=== PATIENT | male | born 1955 ===

== ENCOUNTER 2019-06-21 05:07 | Emergency (ER) | payer SELFPAY ==
[2019-06-21] MEDS ORDERED: LABETALOL 20 MG/4ML SYRINGE IV ONE (05:24)
[2019-06-21] MEDS ORDERED: RSI MEDICATION KIT IV ONE (05:25)
[2019-06-21 05:28] LABS: Absolute Lymphocytes (CBC) 1.2 K/uL (0.7-4.9); Lymphocytes % 12.8 % (15.3-44.8); MPV 7.1 fL (7.6-11.3); RBC Red Blood Cell Count 4.45 M/uL (4.33-5.43)
[2019-06-21 05:34] LABS: Protime INR 1.1
[2019-06-21] MEDS ORDERED: MIDAZOLAM HCL 2 MG/2 ML INJ ONE ×2 (05:41→06:36)
[2019-06-21 05:42] LABS: Potassium 4.3 mmol/L (3.5-5.1)
[2019-06-21] MEDS ORDERED: Nicardipine/NS 25 MG/250 ML KIT IV ONE (06:06)
--- NOTE | 2019-06-21 06:28 | ER ---
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 Last well known was 2229. Transition of care: patient was not received from another setting of care. An acute neurological deficit is present. Pre-hospital glucose is not applicable to this patient. Onset of symptoms was June 21, 2019. Risk Assessment: Do you want to hurt yourself or someone else? Unable to obtain. Initial Sepsis Screen: Does the patient meet any 2 criteria? No. Patient's initial sepsis screen is negative. Does the patient have a suspected source of infection? No. Patient's initial sepsis screen is negative. Care prior to arrival: None. 05:04 Method Of Arrival: EMS: [facility] ea 05:04 Acuity: PINKY 2 ea Stroke Activation: Symptom onset > 6 hours Physician: Stroke Attending; Name: ; Notified At: 05:00; Arrived At: Physician: Chief Stroke Resident; Name: ; Notified At: 05:00; Arrived At: Physician: Stroke Resident; Name: ; Notified At: 05:00; Arrived At: Physician: ED Attending; Name: Helen; Notified At: 05:00; Arrived At: 05:04 Physician: ED Resident; Name: ; Notified At: 05:00; Arrived At: Historical: - Allergies: 05:48 No Known Allergies; tw4 - Home Meds: 05:48 Unable to obtain [Active]; tw4 - PMHx: 05:48 CVA; tw4 - Immunization history:: unable to determine. - Social history:: Smoking status: unknown. - Ebola Screening: : Unable to complete screening because. Screenin:12 Abuse screen: Denies threats or abuse. Nutritional screening: No deficits noted. ea Tuberculosis screening: No symptoms or risk factors identified. Fall Risk IV access (20 points). Assessment: 05:05 Reassessment: Pt taken to CT. ea 05:08 General: Appears comfortable, Behavior is unable to follow commands. Pain: Unable to ea use pain scale. FLACC scale score is 0 out of 10. Neuro: Level of Consciousness is unable to follow commands. Oriented to none Pupils are gazing toward the left. Respiratory: Airway is patent Respiratory effort is even, unlabored, Respiratory pattern is regular, symmetrical. Derm: Wound noted left patino. 05:50 The patient has not been NPO before screening. The patient is not alert and/or unable ea to follow commands. Bedside swallow screen discontinued. Patient kept NPO until cleared by Speech Therapy or Physician. 05:50 pt unable to follow commands Pt unable to follow commands The patient is exhibiting ea difficulty understanding words. The patient is unable to swallow own secretions without drooling or the need for suction. Bedside swallow screening discontinued. Patient kept NPO until cleared by Speech Therapy or Physician. pt unable to follow commands The patient failed the bedside swallow screening. The patient will be kept NPO until cleared by Speech Therapy or Physician. Provider notified of bedside swallow screening results: Sean Cervantes MD. Neuro: Level of Consciousness is awake, Oriented to none. 05:58 Reassessment: Provider and respiratory at bedside, pt sedated and intubated, pt ea tolerated well. 06:38 Reassessment: Life flight at facility for transport, report given to [employer]. ea 06:43 Reassessment: Report called to [facility]. ea 06:58 Reassessment: Pt resting with eyes closed, sedated and intubated, ETT in place, ea respirations assisted, moise breath sounds noted, NG tube in place to low intermittent suction. Mckeon catheter in place to BSD. IV sites intact patent with IV meds infusing. Life flight at facility for transfer, pt left ED via stretcher per [facility]. Vital Signs: 05:19 BP 181 / 136; Pulse 90; Resp 18; Temp 97.7; Pulse Ox 98% ; Weight 124.74 kg; Height 5 ea ft. 11 in. (180.34 cm); 06:00 BP 211 / 125; Pulse 70; Resp 18; Temp 97.8; Pulse Ox 100% ; ea 06:30 BP 200 / 114; Pulse 76; Resp 18; Pulse Ox 99% on ETT vent; ea 05:19 Body Mass Index 38.35 (124.74 kg, 180.34 cm) ea Tyler Coma Score: 05:48 Eye Response: to voice(3). Verbal Response: none(1). Motor Response: flexion tw4 (decorticate)(3). Total: 7. NIH Stroke Scale Scores: 05:10 NIHSS Score: 32 ea ED Course: 05:08 Patient arrived in ED. ea 05:08 Inserted saline lock: 20 gauge in right hand, using aseptic technique. Blood collected. ea Per Andreina AARON. Inserted saline lock: 18 gauge in left antecubital area, using aseptic technique. Blood collected. Per Zeinab AARON. 05:09 Sean Cervantes MD is Attending Physician. tw4 05:10 Patient has correct armband on for positive identification. Placed in gown. Bed in low ea position. Call light in reach. Side rails up X2. 05:10 Arm band placed on right wrist. Patient placed in an exam room, on a stretcher, on ea manager cardiac cath, on pulse oximetry. 05:25 CT Stroke Brain w/o Contrast In Process Unspecified. EDMS 05:38 Assist ventilation with ventilator. ea 05:38 Assisted provider with intubation using 7.5 mm ETT via oral route. ET tube secured at ea 23cm at the teeth. Set up intubation tray. Intubated by Sean Cervantes MD Placement verified by CXR, Patient tolerated well. Vent settings: PEEP 5, Tital volume: 600, Rate: 14. 05:40 NGT: inserted 12 Fr. verified placement of air over stomach, verified return of gastric ea contents, to intermittent suction. Returned gastric contents. Patient tolerated well. 05:44 Rosalina Aldana, AGNIESZKA is Primary Nurse. ea 05:49 Triage completed. ea 05:51 Mckeon cath inserted, using sterile technique, 16 Fr., by ED staff, balloon inflated, to ea gravity drainage. 06:21 \[id number] initiated a transfer with Jayla Madrigal from the [facility]/ [facility] \[id number] administrative approval given by Jayla Madrigal RN , Dr. Harry has accepted the patient in transfer. Patient has been accepted to [place] [id number] Bed 7512/ report to be called to [phone]. 06:53 Patient transferred, IV remains in place. ea 07:05 Stroke CXR 1 View In Process Unspecified. EDMS Administered Medications: 05:34 Drug: Etomidate 20 mg Route: IVP; Site: right hand; ea 05:36 Follow up: Response: No adverse reaction ea 05:35 Drug: VecuroNIUM 10 mg Route: IVP; Site: right hand; ea 05:42 Follow up: Response: No adverse reaction ea 05:41 Drug: Versed 4 mg Route: IVP; Site: right hand; ea 05:42 Follow up: Response: No adverse reaction ea 05:58 Drug: Labetalol 10 mg Route: IVP; Site: right hand; ea 06:00 Follow up: Response: No adverse reaction ea 06:16 Drug: Cardene 5 mcg/kg/min Route: IV; Rate: calculated rate; Site: left antecubital; tl1 07:04 Follow up: IV Status: Infusion continued upon transfer ea 06:34 Drug: Versed 2 mg Route: IVP; Site: right hand; ea 06:38 Follow up: Response: No adverse reaction ea 06:40 Drug: Propofol 5 mcg/kg/min Route: IV; Rate: calculated rate; Site: left antecubital; ea 07:05 Follow up: IV Status: Infusion continued upon transfer ea 07:07 CANCELLED (Other Intervention Used): Versed 4 mg IVP once ea Point of Care Testing: Blood Glucose: 05:19 Blood Glucose: 155 mg/dL; ea Ranges: Output: 06:51 Urine: 450ml (Mckeon); Total: 450ml. ea Outcome: 06:27 ER care complete, transfer ordered by twAbdulkadir 06:30 Condition: stable ea 06:53 Instructed on Family instructed by physician on need for transfer, family verbalized ea the understanding of instruction 06:54 Transferred by helicopter to [facility], Transfer form completed. ea X-rays sent w/ patient. 07:08 Patient left the ED. ea NIH Stroke Scale - NIH Stroke Score Date: 06/21/2019 Time: 05:10 Total Score = 32 1a. Level of Consciousness (LOC) - 1(Not Alert) 1b. Level of Consciousness (LOC) (Year \T\ Age) - 2(Neither) 1c. LOC Commands (Open \T\ Closes Eyes/Trash Collector Supervisor) - 2(Neither) 2. Best Gaze (Lateral Gaze Paresis) - 2(Forced deviation) 3. Visual Field Loss - 0(No visual loss) 4. Facial Palsy - 2(Partial paralysis) 5a. Left Arm: Motor (10-second hold) - 3(No effort against gravity) 5b. Right Arm: Motor (10-second hold) - 2(Drift, some effort against gravity) 6a. Left Leg: Motor (5-second hold - always test supine) - 4(No movement) 6b. Right Leg: Motor (5-second hold - always test supine) - 4(No movement) 7. Limb Ataxia (finger/nose \T\ heel/patino - test with eyes open) - 2(Present in two limbs) 8. Sensory Loss (pinprick arms/legs/face) - 1(Mild to moderate loss) 9. Best Language: Aphasia (description/naming/reading) - 3(Mute, global aphasia) 10. Dysarthria (speech clarity - read or repeat words) - 2(Severe) 11. Extinction and Inattention (visual/tactile/auditory/spatial/personal) - 2(Profound) Initials: ea Signatures: Dispatcher [employer] EDAndreina Rodriguez RN RN tl1 Rosalina Aldana RN Sean Billingsley ea, MD MD tw4 Jayshree Hartman lt1 Corrections: (The following items were deleted from the chart) 06:16 06:15 Cardene 5 mcg/kg/min IV at calculated rate in left antecubital tl1 tl1 07:01 07:01 Versed 4 mg IVP in right hand ea ea 07:07 06:38 Versed 4 mg IVP in right hand ea ea 07:07 06:40 Response: No adverse reaction jason gomez 07:15 05:38 Assisted provider with intubation via oral route. Set up intubation tray. ea Intubated by Sean Cervantes MD Placement verified by CXR, Patient tolerated well. ea 07:16 05:38 Assisted provider with intubation using 7.5 mm ETT via oral route. ET ea tube secured at 23cm at the teeth. Set up intubation tray. Intubated by Sean Cervantes MD Placement verified by CXR, Patient tolerated well. ea
--- NOTE | 2019-06-21 06:28 | EDPHYS ---
Physician Documentation [facility] Name: Gm Monteiro Age: 63 yrs Sex: Male : 1955 Arrival Date: 06/21/2019 Time: 05:08 Bed 3 Private MD: ED Physician Sean Cervantes HPI: 06/21 05:45 This 63 yrs old Male presents to ER via Unassigned with complaints of S/S of Possible tw4 Stroke. 05:45 The patient's problem is reported as altered mental status. Onset: The symptoms/episode tw4 began/occurred today. Duration: The episode is continuous. Context: the episode(s) was witnessed, by no one. The symptoms are alleviated by nothing. The symptoms are aggravated by nothing. Associated signs and symptoms: The patient has no apparent associated signs or symptoms. Severity of symptoms: At their worst the symptoms were moderate in the emergency department the symptoms are unchanged. Patient's baseline: Neuro: alert and fully oriented, Motor: no deficits, Ambulation: walks without assistance. The patient has not experienced similar symptoms in the past. Historical: - Allergies: 05:48 No Known Allergies; tw4 - Home Meds: 05:48 Unable to obtain [Active]; tw4 - PMHx: 05:48 CVA; tw4 - Immunization history:: unable to determine. - Social history:: Smoking status: unknown. - Ebola Screening: : Unable to complete screening because. ROS: 05:48 Unable to obtain ROS due to altered mental status. tw4 Exam: 05:48 Radiologist reports: hemorrhage in the right basal ganglia with 4mm of shift tw4 05:48 Constitutional: The patient appears in obvious distress, moderately distressed, obviously ill. Vital Signs: 05:19 BP 181 / 136; Pulse 90; Resp 18; Temp 97.7; Pulse Ox 98% ; Weight 124.74 kg; Height 5 ea ft. 11 in. (180.34 cm); 06:00 BP 211 / 125; Pulse 70; Resp 18; Temp 97.8; Pulse Ox 100% ; ea 06:30 BP 200 / 114; Pulse 76; Resp 18; Pulse Ox 99% on ETT vent; ea 05:19 Body Mass Index 38.35 (124.74 kg, 180.34 cm) ea NIH Stroke Scale Scores: 05:10 NIHSS Score: 32 ea Edy Coma Score: 05:48 Eye Response: to voice(3). Verbal Response: none(1). Motor Response: flexion tw4 (decorticate)(3). Total: 7. Procedures: 06:18 Intubation: Ventilated with 100% NRB prior to procedure. O2 saturation prior to tw4 procedure was 98 %. Intubated orally using # 4 Mack blade with 7.5 mm ETT. was successful on first attempt. Ventilated with Ambu bag. Tube secured with tape with ETT chacon Placement verified by CXR, Patient tolerated well. MDM: 05:09 Patient medically screened. tw4 06:18 Differential diagnosis: CVA, TIA, Dementia, paralysis. Data reviewed: vital signs, tw4 nurses notes. Data interpreted: Pulse oximetry:. Counseling: I had a detailed discussion with the patient and/or guardian regarding: the historical points, exam findings, and any diagnostic results supporting the discharge/admit diagnosis, the presence of at least one elevated blood pressure reading (>120/80) during this emergency department visit. Medication response: cardene. ED course: Dr Harry neurology agrees with treatment plan and admission. Will control BP to SBP 160. Will start on Aquiles drip and titrate. 06/21 05:10 Order name: Basic Metabolic Panel; Complete Time: 05:54 tw4 06/21 05:55 Interpretation: Normal except: CL 110; GLUC 138; BUN 21; GFR 58. tw4 06/21 05:10 Order name: CBC with Diff; Complete Time: 05:54 tw4 06/21 05:55 Interpretation: PLT 441; LYM% 12.8; AIDEE% 76.9; MPV 7.1. tw4 06/21 05:10 Order name: Protime (+inr); Complete Time: 05:54 tw4 06/21 05:10 Order name: Ptt, Activated; Complete Time: 05:54 tw4 06/21 05:10 Order name: CT Stroke Brain w/o Contrast tw4 06/21 05:40 Order name: Glucose, Ancillary Testing; Complete Time: 05:54 EDMS 06/21 05:10 Order name: Stroke CXR 1 View tw4 06/21 05:10 Order name: Call for Old Records; Complete Time: 06:37 tw4 06/21 05:10 Order name: EKG; Complete Time: 05:11 tw4 11/12 05:10 Order name: Accucheck; Complete Time: 06:00 06/21 05:10 Order name: Cardiac monitoring; Complete Time: 06:00 06/21 05:10 Order name: EKG - Nurse/Tech; Complete Time: 06:00 06/21 05:10 Order name: IV Saline Lock; Complete Time: 06:00 06/21 05:10 Order name: Labs collected and sent; Complete Time: 06:00 06/21 05:10 Order name: NPO; Complete Time: 06:00 06/21 05:10 Order name: O2 Per Protocol; Complete Time: 06:00 06/21 05:10 Order name: O2 Sat Monitoring; Complete Time: 06:00 06/21 05:10 Order name: Stroke Swallow Screen; Complete Time: 06:16 06/21 06:02 Order name: Mckeon; Complete Time: 06:04 ea 06/21 06:02 Order name: NG Tube; Complete Time: 06:04 ea Administered Medications: 05:34 Drug: Etomidate 20 mg Route: IVP; Site: right hand; ea 05:36 Follow up: Response: No adverse reaction ea 05:35 Drug: VecuroNIUM 10 mg Route: IVP; Site: right hand; ea 05:42 Follow up: Response: No adverse reaction ea 05:41 Drug: Versed 4 mg Route: IVP; Site: right hand; ea 05:42 Follow up: Response: No adverse reaction ea 05:58 Drug: Labetalol 10 mg Route: IVP; Site: right hand; ea 06:00 Follow up: Response: No adverse reaction ea 06:16 Drug: Cardene 5 mcg/kg/min Route: IV; Rate: calculated rate; Site: left antecubital; tl1 07:04 Follow up: IV Status: Infusion continued upon transfer ea 06:34 Drug: Versed 2 mg Route: IVP; Site: right hand; ea 06:38 Follow up: Response: No adverse reaction ea 06:40 Drug: Propofol 5 mcg/kg/min Route: IV; Rate: calculated rate; Site: left antecubital; ea 07:05 Follow up: IV Status: Infusion continued upon transfer ea 07:07 CANCELLED (Other Intervention Used): Versed 4 mg IVP once ea Point of Care Testing: Blood Glucose: 05:19 Blood Glucose: 155 mg/dL; ea Ranges: Critical Glucose Levels:Adult <50 mg/dl or >400 mg/dl <40 mg/dl or >180 mg/dl Disposition: 06/21/19 06:27 Transfer ordered to [facility]. 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 - Reason for transfer: Higher level of care. - Accepting physician is Dr Piero Rueda. - Condition is Critical. - Problem is new. - Symptoms are unchanged. Critical care time excluding procedures: 06:27 Critical care time: Bedside Care: 30 minutes, Consultation: 5 minutes, Family tw4 Intervention: 5 minutes. Total time: 40 minutes NIH Stroke Scale - NIH Stroke Score Date: 06/21/2019 Time: 05:10 Total Score = 32 1a. Level of Consciousness (LOC) - 1(Not Alert) 1b. Level of Consciousness (LOC) (Year \T\ Age) - 2(Neither) 1c. LOC Commands (Open \T\ Closes Eyes/Hoe Runner) - 2(Neither) 2. Best Gaze (Lateral Gaze Paresis) - 2(Forced deviation) 3. Visual Field Loss - 0(No visual loss) 4. Facial Palsy - 2(Partial paralysis) 5a. Left Arm: Motor (10-second hold) - 3(No effort against gravity) 5b. Right Arm: Motor (10-second hold) - 2(Drift, some effort against gravity) 6a. Left Leg: Motor (5-second hold - always test supine) - 4(No movement) 6b. Right Leg: Motor (5-second hold - always test supine) - 4(No movement) 7. Limb Ataxia (finger/nose \T\ heel/patino - test with eyes open) - 2(Present in two limbs) 8. Sensory Loss (pinprick arms/legs/face) - 1(Mild to moderate loss) 9. Best Language: Aphasia (description/naming/reading) - 3(Mute, global aphasia) 10. Dysarthria (speech clarity - read or repeat words) - 2(Severe) 11. Extinction and Inattention (visual/tactile/auditory/spatial/personal) - 2(Profound) Initials: ea Signatures: Dispatcher [employer] EDMS Andreina Geiger, RN RN tl1 Rosalina Aldana, RN RN Sean Solomon MD MD tw4 Jayshree Hartman lt1 Corrections: (The following items were deleted from the chart) 07:04 06:25 Chest Single View+[email or web address] ordered. EDMS EDMS 07:07 06:32 Versed 4 mg IVP once ordered. tw4 ea 07: 07:01 Versed 4 mg IVP once given. ea ea 07: 07:01 Versed 4 mg IVP once ordered. ea ea : 07:02 Versed 4 mg IVP once given. ea ea : 07:07 Versed 4 mg IVP once ordered. ea ea 07: 06:27 06/21/2019 06:27 Transfer ordered to [facility]. 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 Reason for transfer: Higher level of care. Accepting physician is Dr Harry Neurology. Condition is Critical. Problem is new. Symptoms are unchanged. tw4
[2019-06-21] MEDS ORDERED: PROPOFOL 1,000 MG/100 ML VIAL IV ONE (06:39)
[2019-06-21 07:20] VITALS: TEMP 97.8
[2019-06-21 07:22] VITALS: BP 200/114; O2SAT 99
[2019-06-21] MEDS ORDERED: WATER FOR INJ,STERILE 10 ML ONE (08:21)
[2019-06-21] MEDS ORDERED: ETOMIDATE 20 MG/10 ML VIAL IV ONE (08:21)
--- NOTE | 2019-06-21 08:44 | RAD REPORT ---
EXAM DESCRIPTION: RAD - Chest Single View - 06/21/2019 7:03 am CLINICAL HISTORY: Found unresponsive COMPARISON: None. TECHNIQUE: AP portable chest image was obtained 0602 hours . FINDINGS: Endotracheal tube is in place. Tip is T5 level mid aortic arch. NG tube extends below the diaphragm. Lung volumes are low. No peripheral mass or consolidation. No significant pulmonary edema pattern. He art size is normal. Pulmonary vasculature within normal limits. No measurable pleural effusion and no pneumothorax. No acute bony abnormality seen. Aorta appears enlarged. Mediastinum is widened. This i s in part due to supine positioning and rotation. IMPRESSION: Low lung volume study showing no significant pulmonary edema and no focal consolidation. ET tube and NG tube in good position. Widened mediastinum and apparent aortic enlargement. This may be artifact of supine shallow inspirati on exam. Follow-up CT chest imaging could be performed to assure no acute aortic process.
--- NOTE | 2019-06-21 08:45 | EKG ---
Test Date: 2019-06-21 Test Time: 05:23:29 Loan Analyst: RAMSEY MEASUREMENT RESULTS: Intervals: Rate: 92 MD: 192 QRSD: 86 QT: 362 QTc: 447 [place]: P: 12 MD: 192 QRS: -23 T: -27 INTERPRETIVE STATEMENTS: Normal sinus rhythm Inferior infarct, age undetermined Cannot rule out Anterior infarct, age undetermined Abnormal ECG No previous ECG available for comparison Electronically Signed On 06-21-19 08:45:09 CHIEF OPERATOR REFORMER by Dennys Lopez
--- NOTE | 2019-06-21 10:33 | RAD REPORT ---
EXAM DESCRIPTION: CT - Ct Stroke Brain Wo Cont - 06/21/2019 5:33 am CLINICAL HISTORY: WEAKNESS COMPARISON: None. TECHNIQUE: CT HEAD WITHOUT IV CONTRAST on 06/21/2019 5:10 AM INSPECTOR FIREARMS This exam was performed according to our departmental dose-optimization program, which includes autom ated exposure control, adjustment of the mA and/or kV according to patient size and/or use of iterati ve reconstruction technique. FINDINGS: There is surrounding vasogenic edema. There is mass effect with 4 mm right to left midline shift. There is an old lacunar infarct in the anterior right basal ganglia. There is right frontal a nd right parietal encephalomalacia. There is no hydrocephalus. There is no significant volume loss fo r age. There are mild patchy hypodensities within the periventricular and subcortical white matter, c onsistent with microangiopathic ischemic changes. The calvarium is intact. Orbits and globes are unremarkable. The paranasal sinuses are clear. Mastoid air cells are clear. IMPRESSION: There is a large left basal ganglia hematoma measuring 5.8 cm. Large acute left basal ganglia hemorrhage. Clinical findings were discussed with and acknowledged by Dr. Sean Cervantes on 06/21/2019 5:[address] Electronically signed by: Paulie Javier MD 06/21/2019 5:27 AM INSPECTOR FIREARMS Due to temporary technical issues with the PACS/Fluency reporting system, reports are being signed by the in house radiologist as a courtesy to ensure prompt reporting. The interpreting radiologist is f ully responsible for the content of the report.
== END 2019-06-21 07:08 | disposition short-term general hospital (02) ==
LOC: ER 05:07
PROC: 0BH17EZ Insertion of Endotracheal Airway into Trachea, Via Natural or Artificial Opening (ICD-10-PCS; principal; 2019-06-21)
PROC: 5A1935Z Respiratory Ventilation, Less than 24 Consecutive Hours (ICD-10-PCS; 2019-06-21)
DX: I69.151 Hemiplegia and hemiparesis following nontraumatic intracerebral hemorrhage affecting right dominant side (principal); I16.1 Hypertensive emergency; R29.732 NIHSS score 32
CPT/HCPCS: 31500; 36415; 51702; 70450; 71045; 80048; 82947; 85025; 85610; 85730; 93005; 96365; 96375; 99291; J2250; J2704